=== PATIENT | male | born 1995 | race African-American/Black ===

== ENCOUNTER 2017-03-14 18:00 | Emergency (ER) | payer BC, SELFPAY ==
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
== END 2017-03-14 19:23 | disposition home or self-care (01) ==
LOC: ERS 18:00
DX: S16.1XXA Strain of muscle, fascia and tendon at neck level, initial encounter (principal); F17.290 Nicotine dependence, other tobacco product, uncomplicated; V89.2XXA Person injured in unspecified motor-vehicle accident, traffic, initial encounter
CPT/HCPCS: 70450; 72125